=== PATIENT | female | born 1985 | race Caucasian/White ===

== ENCOUNTER 2017-12-27 00:31 | Inpatient (IN) | payer OTHER ==
[~2017-12-27] VITALS: Ht 152.4 cm; Wt 97.1 kg
[2017-12-27 01:48] LABS: ABSOLUTE BASOPHIL COUNT 0 /CUMM (0.0-0.2); ABSOLUTE EOSINOPHIL COUNT 0.1 /CUMM (0.0-0.7); ABSOLUTE GRANULOCYTE CT 4.9 /CUMM (1.4-6.5); MEAN PLATELET VOLUME 10.4 FL (7.4-10.4)
[2017-12-27 01:57] LABS: ABSOLUTE LYMPH COUNT 2.4 /CUMM (1.2-3.4); ABSOLUTE MONOCYTE COUNT 0.6 /CUMM (0.10-0.60); BASOPHIL % 0.2 % (0.0-2.0); EOSINOPHIL % 0.9 % (0-5); GRANULOCYTE % 61.7 % (42.2-75.2); HEMATOCRIT 37.3 % (37-47); MEAN CORPUSCULAR HGB 29.9 PG (27.0-31.0); MEAN CORPUSCULAR HGB CONC 34.8 G/DL (33.0-37.0); MEAN CORPUSCULAR VOLUME 86.1 FL (81.0-99.0); RBC DISTRIBUTION WIDTH 15.2 % (11.5-14.5); RED BLOOD CELL CT 4.33 /CUMM (4.20-5.40)
[2017-12-27 02:24] LABS: PLATELET COUNT 74 /CUMM (130-400)
[2017-12-27 06:30] VITALS: BP 111/90
[2017-12-27 06:56] LABS: ABSOLUTE BASOPHIL COUNT 0 /CUMM (0.0-0.2); ABSOLUTE EOSINOPHIL COUNT 0 /CUMM (0.0-0.7); ABSOLUTE LYMPH COUNT 1.1 /CUMM (1.2-3.4); ABSOLUTE MONOCYTE COUNT 0.3 /CUMM (0.10-0.60); BASOPHIL % 0.1 % (0.0-2.0); EOSINOPHIL % 0 % (0-5); GRANULOCYTE % 87.5 % (42.2-75.2); HEMATOCRIT 37.8 % (37-47); MEAN CORPUSCULAR HGB 29.3 PG (27.0-31.0); MEAN CORPUSCULAR HGB CONC 33.5 G/DL (33.0-37.0); MEAN CORPUSCULAR VOLUME 87.2 FL (81.0-99.0); MEAN PLATELET VOLUME 10.7 FL (7.4-10.4); RBC DISTRIBUTION WIDTH 15.4 % (11.5-14.5); RED BLOOD CELL CT 4.33 /CUMM (4.20-5.40); WHITE BLOOD CELL COUNT 11.4 /CUMM (4.8-10.8)
[2017-12-27 07:15] LABS: PLATELET COUNT 73 /CUMM (130-400)
--- NOTE | 2017-12-27 09:22 | History & Physical ---
General Information and HPI MD Statement: I have seen and personally examined LUIS A RIVERA and documented this H&P. The patient is a 32 year old female at [38] weeks and [5] days gestation who presented with a chief complaint of [SROM]. History of Present Illness: 32yo G1 EDC 01/05/18 by early u/s presents with SROM last pm. Good FM and occ UC; no VB. care with Dr mendosa complete and remarkable for LGA fetus; offered c/s however pt refused. Pt also has developed gestational thrombocytopenia without symptoms. 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 EENTM: Reports: no symptoms. Cardiovascular: Reports: no symptoms. Respiratory: Reports: no symptoms. GI: Reports: no symptoms. Genitourinary: Reports: no symptoms. Musculoskeletal: Reports: no symptoms. Skin: Reports: no symptoms. Neurological/Psychological: Reports: no symptoms. Hematologic/Endocrine: Reports: no symptoms. Immunologic/Allergic: Reports: no symptoms. All Other Systems: Reviewed and Negative Exam & Diagnostic Data Last 24 Hrs of Vital Signs/I&O Vital Signs Date Time Temp Pulse Resp B/P B/P Pulse O2 O2 Flow FiO2 Mean Ox Delivery Rate 12/27 0630 111/90 Intake & Output 12/27 1600 12/27 0800 12/27 0000 Intake Total Output Total Balance Patient 214 lb Weight Obstetric Exam Wgt Gained During : 30 Pelvimetry: gynecoid Dilation (cm): 2 Effacement (%): 50 Station: -2 Membranes: SROM Fluid: clear Fundal Height (cm): 40 Multiple Gestation? No Contractions: q2-3 #1 - FHR Baseline: 130 Category: 1 Estimated Weight: 8 Presentation: cephalic Patient for Induction? No Physical Exam: HENT: NCAT Chest: CTA CV: nl S1S2 Abd: gravid, cepahlic, EFW 8 CX: 2/50/-2 Ext: no c/c/e Labs Blood Type & Rh: B + Antibody Screen: neg Hct/Hgb & Platelets #1: [id number] Hct/Hgb & Platelets #2: [id number] Rubella: imm VDRL #1: nr VDRL #2: nr HbsAg: neg HIV #1: neg HIV #2 neg 1 Hr P Group B Strep: neg Initial Ultrasound: wnl Anatomy Ultrasound: wnl Ultrasound for EFW: 7 Genetic Testing: neg Last 24 Hrs of Labs/Tacho: Laboratory Tests 12/27/17 0600: CBC w Diff NO MAN DIFF REQ, RBC 4.33, MCV 87.2, MCH 29.3, MCHC 33.5, RDW 15.4 H , MPV 10.7 H, Gran % 87.5 H, Lymphocytes % 9.9 L, Monocytes % 2.5, Eosinophils % 0, Basophils % 0.1, Absolute Granulocytes 10.0 H, Absolute Lymphocytes 1.1 L, Absolute Monocytes 0.3, Absolute Eosinophils 0, Absolute Basophils 0 12/27/17 0130: CBC w Diff NO MAN DIFF REQ, RBC 4.33, MCV 86.1, MCH 29.9, MCHC 34.8, RDW 15.2 H , MPV 10.4, Gran % 61.7, Lymphocytes % 29.9, Monocytes % 7.3, Eosinophils % 0.9, Basophils % 0.2, Absolute Granulocytes 4.9, Absolute Lymphocytes 2.4, Absolute Monocytes 0.6, Absolute Eosinophils 0.1, Absolute Basophils 0, Urine Color YEL, Urine Clarity HAZY H, Urine pH 6.5, Ur Specific [place] 1.020, Urine Protein NEG, Urine Ketones 15 H, Urine Nitrite NEG, Urine Bilirubin NEG, Urine Urobilinogen 0.2, Ur Leukocyte Esterase NEG, Ur Microscopic SEDIMENT EXAMINED, Urine RBC 15-25 H, Urine WBC 1-3 H, Ur Epithelial Cells MANY H, Urine Bacteria FEW H, Urine Hemoglobin MOD H, Urine Glucose NEG 12/27/17 0040: Membrane Rupture POSITIVE Assessment/Plan Assessment/Plan: PROM expectant mgmt As Ranked By This Provider Problem List: 1. Core Measures Venous Thromboembolism VTE Risk Factors / No Mechanical VTE Prophylaxis d/t Early Ambulation No VTE Pharm Prophylaxis d/t Bleeding (Active)
--- NOTE | 2017-12-27 18:25 | Labor & Delivery Summary ---
Delivery Summary Vaginal Delivery: Vaginal: vertex Episiotomy/Lacerations: Episiotomy/Lacerations: epis Type: RML Repair: 3-0 poly layered Placenta: Placenta: spontanteous, normal, 3 vessel, nuchal cord (x_) Baby's Weight: P STS Apgars - 1 Min: 8 Apgars - 5 Min: 9
[2017-12-27 21:34] LABS: ABSOLUTE BASOPHIL COUNT 0 /CUMM (0.0-0.2); ABSOLUTE EOSINOPHIL COUNT 0 /CUMM (0.0-0.7); ABSOLUTE LYMPH COUNT 1.2 /CUMM (1.2-3.4); ABSOLUTE MONOCYTE COUNT 0.6 /CUMM (0.10-0.60); BASOPHIL % 0 % (0.0-2.0); EOSINOPHIL % 0 % (0-5); GRANULOCYTE % 89.6 % (42.2-75.2); MEAN CORPUSCULAR HGB 30.1 PG (27.0-31.0); MEAN CORPUSCULAR HGB CONC 34.7 G/DL (33.0-37.0); MEAN CORPUSCULAR VOLUME 86.6 FL (81.0-99.0); MEAN PLATELET VOLUME 10.8 FL (7.4-10.4); PLATELET COUNT 69 /CUMM (130-400); RBC DISTRIBUTION WIDTH 15.4 % (11.5-14.5); RED BLOOD CELL CT 3.76 /CUMM (4.20-5.40)
[2017-12-27 22:03] LABS: HEMATOCRIT 32.6 % (37-47); WHITE BLOOD CELL COUNT 17.9 /CUMM (4.8-10.8)
[2017-12-28 09:18] LABS: ABSOLUTE BASOPHIL COUNT 0 /CUMM (0.0-0.2); ABSOLUTE EOSINOPHIL COUNT 0 /CUMM (0.0-0.7); ABSOLUTE GRANULOCYTE CT 7.6 /CUMM (1.4-6.5); ABSOLUTE LYMPH COUNT 2.3 /CUMM (1.2-3.4); ABSOLUTE MONOCYTE COUNT 0.5 /CUMM (0.10-0.60); BASOPHIL % 0.2 % (0.0-2.0); EOSINOPHIL % 0.1 % (0-5); GRANULOCYTE % 72.5 % (42.2-75.2); HEMATOCRIT 28.9 % (37-47); MEAN CORPUSCULAR HGB 29.5 PG (27.0-31.0); MEAN CORPUSCULAR HGB CONC 33.3 G/DL (33.0-37.0); MEAN CORPUSCULAR VOLUME 88.6 FL (81.0-99.0); MEAN PLATELET VOLUME 10.9 FL (7.4-10.4); RBC DISTRIBUTION WIDTH 15.8 % (11.5-14.5); RED BLOOD CELL CT 3.27 /CUMM (4.20-5.40); WHITE BLOOD CELL COUNT 10.5 /CUMM (4.8-10.8)
[2017-12-28 10:01] LABS: PLATELET COUNT 65 /CUMM (130-400)
--- NOTE | 2017-12-28 10:32 | PN- Post Delivery/GYN ---
Subjective Subjective: no c/o; breast feeding Review of Systems: neg Objective Last 24 Hrs of Vital Signs/I&O vss afebrile Physical Exam: ff ext nt Assessment/Plan Assessment/Plan s/p ppd1 circ routine pp care Problem List: 1.
[2017-12-29 09:25] LABS: ABSOLUTE BASOPHIL COUNT 0 /CUMM (0.0-0.2); ABSOLUTE EOSINOPHIL COUNT 0 /CUMM (0.0-0.7); ABSOLUTE GRANULOCYTE CT 7.6 /CUMM (1.4-6.5); ABSOLUTE LYMPH COUNT 1.9 /CUMM (1.2-3.4); ABSOLUTE MONOCYTE COUNT 0.2 /CUMM (0.10-0.60); BASOPHIL % 0.3 % (0.0-2.0); EOSINOPHIL % 0 % (0-5); GRANULOCYTE % 77.7 % (42.2-75.2); HEMATOCRIT 32.6 % (37-47); MEAN CORPUSCULAR HGB 29.9 PG (27.0-31.0); MEAN CORPUSCULAR HGB CONC 33.9 G/DL (33.0-37.0); MEAN PLATELET VOLUME 10.6 FL (7.4-10.4); RBC DISTRIBUTION WIDTH 15.6 % (11.5-14.5); WHITE BLOOD CELL COUNT 9.8 /CUMM (4.8-10.8)
--- NOTE | 2017-12-29 09:28 | PN- Post Delivery/GYN ---
Subjective Subjective: NO COMPLAINTS INFORMED OF PSYCH Objective Last 24 Hrs of Vital Signs/I&O PER CHART STABLE Physical Exam: PE THIN WF IN NAD ABD SOFT NT FUNDUS FIRM NT LOCHIA MINMAL EXT +2 EDEMA - REFLEXES Assessment/Plan Assessment/Plan ASSESS ANEMIAPERSONALITY DISORDER LOW PLATELETS PLAN PYSCH CONSULT CHECK LFTS
[2017-12-29 09:40] LABS: PLATELET COUNT 78 /CUMM (130-400)
[2017-12-29 09:43] LABS: PT 10.1 SEC (9.4-12.5); PTT 23 SEC (25-37)
--- NOTE | 2017-12-29 11:02 | Cons- Psychiatry ---
Psychiatric Consult Date of Consult: 12/29/17 Reason for Consult: Asked to see this 32-year-old female to assess "risk for depression" History of Present Illness: The patient is a 32-year-old female who vaginally delivered her first child 2 days ago. Staff reports that she can be "manipulative" and "sometimes she is really sharp and sometimes she is really nice" they are concerned that she may develop depression I would like her to have resources available. At the patient's request her remained in the room. Patient had just met with the nurse and was breast-feeding her baby. She seemed well bonded with her baby. The patient reports that "I have been told to have a type a personality so I might get depressed". She and her report that the patient had a difficult with nausea and poor sleep throughout. She reports that her mood is "good". She reports that she had a difficult light night last night and that she can get "sharp" particularly when she is tired. Her has not noticed any changes in her mood or temperament. The patient 's reports that she has significant supports including her , and loss under family of origin. The patient is not feeling overwhelmed although she is understandably apprehensive is a first-time mother. She has no thoughts of harming herself or harming her baby. She is future oriented. There are no psychotic symptoms. Past psychiatric history: None Substance use history: None Family psychiatric history: None Allergies: Coded Allergies: avocado (Mild, itching 12/27/17) Uncoded Allergies: Brown stretchy tape (Mild, itching 12/27/17) Food Allergies PISTACHIOS Current Medications: Med Docusate Sodium 100 MG PO BID PRN 12/27/17 1830 Ibuprofen 800 MG PO Q6P PRN 12/27/17 1830 Magnesium Hydroxide 30 ML PO DAILY PRN 12/27/17 1830 Oxycodone/Acetaminophen 1 TAB PO Q3P PRN 12/27/17 1830 Past History Past Medical History Neurological: NONE Psychiatric: NONE Past Surgical History Surgical History: 1 Assessment/Plan Mental Status Orientation: Person, Place, Situation Mental Status Exam: The patient is a 32-year-old female with long straight dark hair who is sitting comfortably in a chair nursing her . She was pleasant and appropriate. She requested that her stay in the room. Eye contact was good. Speech was normal in rate, rhythm, volume and tone. She describes her mood as good, her affect was a little anxious. She was not suicidal or homicidal. Thought process was normal in tempo, stream and form with no delusions or obsessions. Attention and concentration were good. There was no perceptual abnormality. Impulse control is fair. Recent and remote memory are intact. Intelligence level is average, fund of knowledge average, use of language appropriate. Insight is fair and judgment unimpaired. Diffential Diagnosis: No acute psychiatric illness at this time. Impression: 32-year-old female 2 days post vaginal delivery of her first child. Asked to assess for risk of depression. The concern around depression appears to have stemmed from the patient being manipulative and at times irritable. The patient is no personal or family history of psychiatric illness. She did have a difficult but her baby was planned and she has good supports. She has no thoughts of harming herself or her baby. There are no psychotic symptoms. Provisional Treatment Plan: The patient would benefit from a new mother's support group. I also encouraged her to use all the family support she has available so that she can get some rest. If necessary the patient has been advised that she can contact the behavioral health outpatient department at for therapy and if necessary medication management. The number is [phone]. Psychiatry will sign off. Please reconsult if we can be of any assistance. Thank you for consulting us on this patient.
--- NOTE | 2017-12-29 11:17 | Incdntl Nt Psy ---
Incidental Note Notation: Both staff and patient report that the patient had a very difficult night last night. She was emotionally dysregulation. It is possible that this was related to the dose of prednisone she received last evening.
== END 2017-12-29 12:05 | DRG 775 ==
LOC: CBCO 00:31 → GNO 00:58
PROVIDERS: Obstetrics & Gynecology; Specialist
PROC: 10E0XZZ Delivery of Products of Conception, External Approach (ICD-10-PCS; principal; 2017-12-27)
PROC: 0W8NXZZ Division of Female Perineum, External Approach (ICD-10-PCS; principal; 2017-12-27)
DX: O99.12 Other diseases of the blood and blood-forming organs and certain disorders involving the immune mechanism complicating childbirth (principal); Z3A.38 38 weeks gestation of pregnancy; Z37.0 Single live birth; O69.81X0 Labor and delivery complicated by cord around neck, without compression, not applicable or unspecified
CPT/HCPCS: GNOS; 81001; 84112; 87086; J0595; J1885; J7120